=== PATIENT | female | born 1990 | race Caucasian/White ===

== ENCOUNTER 2017-02-09 12:42 | Inpatient (IN) | payer OTHER ==
[2017-02-09] MEDS ORDERED: DEXTROSE 5%-LACTATED RINGERS 1,000 ML IV SCH (13:00)
[2017-02-09 16:25] VITALS: BMI 33.9
[2017-02-09 16:32] LABS: EOSINOPHIL 0.3 % (0-4.5); MCH 27.1 pg (25.7-33.7); MCHC 32.4 g/dl (32.0-36.0); MEAN CELL VOLUME 83.7 fl (80-96); MEAN PLT VOLUME 10.7 fl (7.5-11.1); NEUTROPHILS 83.9 % (42.8-82.8); PLATELET COUNT 159 K/MM3 (134-434); RDW 14.9 % (11.6-15.6); WHITE BLOOD COUNT 15.7 K/mm3 (4.0-10.0)
[2017-02-09 16:48] LABS: INR 1.03 (0.82-1.09); PROTHROMBIN TIME (PATIENT) 11.3 SEC (9.98-11.88)
[2017-02-09 16:51] LABS: ACTIVATED PTT 27.4 SECONDS (26.9-34.4)
[2017-02-09] MEDS ORDERED: BUTORPHANOL TARTRATE 1 MG/ML VIAL IVPUSH ONE ×3 (17:00→21:15)
[2017-02-09 17:17] LABS: CALCIUM 8.6 mg/dL (8.5-10.1)
[2017-02-09 17:48] LABS: COCKROFT - GAULT 311.3295; CREATININE 0.4 mg/dL (0.55-1.02)
--- NOTE | 2017-02-09 22:09 | HP ---
Past Medical History - Admission Chief Complaint: onset of labor History of Present Illness: 26 y/o female presented to labor c/o onset of labor her antipartum care was unremarkable \she s/p normal delivery of a previous vaginal delivery which was uncomplicated' History Source: Patient Limitations to Obtaining History: No Limitations - Past Medical History Cardiovascular: No: AFIB, Aneurysm, Aortic Insufficiency, Aortic Stenosis, CAD, CHF, Deep Vein Thrombosis, HTN, Hyperlipdemia, CT, Mitral Insufficiency, Mitral Stenosis, Murmur, Pulmonary Hypertension, Other Gastrointestinal: No: Ascites, Cancer, Constipation, Crohn's Disease, Diverticulitis, Diverticulosis, Esophageal Varices, Gastritis, GERD, GI Bleed, Hemorrhoids, Hiatal Hernia, Inflamatory Bowel Disease, Irritable Bowel Disease, Pancreatitis, Peptic Ulcer Disease, Ulcerative Colitis, Other Hepatobiliary: No: Cirrhosis, Cholelithiasis, Cholecystitis, Choledocholithiasis , Hepatitis A, Hepatitis B, Hepatitis C, Other Reproductive: No: Ectopic , Endometriosis, Fibroids, PID, Polycystic Ovary Syndrome, Postmenopausal, Other ...: 2 ...Para: 1 ...Term: 1 ...: 0 ...Spon : 0 ...Induced : 0 ...Multiple Gestation: 0 ...LMP: 05/11/16 ... Weeks Gestation by Dates: 39.1 ...EDC by Dates: 02/15/17 ...EDC by Sono: 02/15/17 Heme/Onc: No: Anemia, B12 Deficiency, Bleeding Disorder, Cancer, Current Chemotherapy, Current Radiation Therapy, Hemochromatosis, Hypercoaguable State, Myeloproliferative Synd, Sickle Cell Disease, Sickle Cell Trait, Thrombocytopenia, Other Infectious Disease: No: AIDS, C-Diff, Herpes Zoster, HIV, MRSA, STD's, Tuberculosis, VREF, Other Psych: No: Addictions, Anxiety, Bipolar, Depression, Panic, Psychosis, Schizophrenia, Other Musculoskeletal: No: Bursitis, Chronic low back pain, Hemiparesis, Hemiplegia, Osteoarthritis, Paraplegia, Other Rheumatology: No: Fibromyalgia, Gout, Lupus, Rheumatoid Arthritis, Sarcoidosis, Vasculitis, Other ENT: No: Allergic Rhinitis, Sinusitis, Other Endocrine: No: [place]'s Disease, Patricio's Disease, Diabetes Insipidus, Diabetes Mellitus, Hyperparathyroidism, Hyperthyroidism, Hypothyroidism, Osteopenia, SIADH, Other Dermatology: No: Basal Cell, Cellulitis, Eczema, Melanoma, Psoriasis, Squamous Cell, Other - Past Surgical History Past Surgical History: No: None, AAA Repair, AICD, Amputation, Appendectomy, Arthrosocopy, AV Fistula/Graft, Bariatric Surgery, Breast Biopsy, Bypass, CABG, Carotid Endarterectomy, Cataract Removal, Cholecystectomy, Colectomy, Colonoscopy, Colostomy, Craniotomy, , Cystectomy, Hernia Repair, Hysterectomy, Ileal Conduit, Ileosotomy, Joint Replacement, Kidney Transplant, Laminectomy, Liver Transplant, Mastectomy, Nephrectomy, Oopherectomy, Orchiectomy, Permanent Pacemaker, Prostatectomy, Splenectomy, Stent, Thoracotomy , TURP, Tonsillectomy, Tubal Ligation, Upper Endoscopy, Valve Replacement, Vasectomy, Vein Stripping/Ligation Hx Myomectomy: No Hx Transabdominal Cerclage: No - Smoking History Smoking history: Never smoked Have you smoked in the past 12 months: No - Alcohol/Substance Use Hx Alcohol Use: No - Social History History of Recent Travel: No Home Medications - Allergies Allergies/Adverse Reactions: Allergies Allergy/AdvReac Type Severity Reaction Status Date / Time No Known Allergies Allergy Verified 02/09/17 14:27 - Home Medications Home Medications: Ambulatory Orders Pnv95/Ferrous Fumarate/FA [ Vitamin Tablet] 1 each PO DAILY 02/09/17 Family Disease History - Family Disease History Family History: Unremarkable Review of Systems - Review of Systems Constitutional: denies: No Symptoms, Chills, Diaphoresis, Fever, Lethargy, Loss of Appetite, Malaise, Night Sweats, Unintentional Wgt. Loss, Weakness, Other Eyes: denies: No Symptoms, Blind Spots, Blurred Vision, Double Vision, Eye Pain , Floaters, Photophobia, Recent Change in Vision, Other HENT: denies: No Symptoms, Difficult Swallowing, Ear Discharge, Ear Pain, Epistaxis, Gingival Bleeding, Hearing Loss, Mouth Swelling, Nasal Congestion, Ocular Prosthesis, Throat Pain, Toothache, Ringing in Ears, Other Neck: denies: No Symptoms, Decreased ROM, Lumps, Pain on Movement, Stiffness, Swollen Glands, Tenderness, Other Cardiovascular: denies: No Symptoms, Chest Pain, Edema, Palpitations, Shortness of Breath, Other Respiratory: denies: No Symptoms, Cough, Exercise Intolerance, Hemoptysis, Orthopnea, PND, Snoring, SOB, SOB on Exertion, Wheezing, Other Gastrointestinal: denies: No Symptoms, Abdominal Pain, Bloating, Constipation, Diarrhea, Dysphagia, Indigestion, Melena, Nausea, Rectal Bleeding, Vomiting, Vomiting Blood, Other Genitourinary: denies: No Symptoms, Burning, Discharge, Dysuria, Flank Pain, Frequency, Hematuria, Incontinence, Lesions, Menses, Pain, Testicular Mass, Testicular Pain, Testicular Swelling, Urgency, Vaginal Bleeding, Other Breasts: denies: No Symptoms Reported, See HPI, Breast Implants, Discharge from Nipple, Lumps, Pain, Skin Changes, Other Musculoskeletal: denies: No Symptoms, Back Pain, Crepitus, Decreased ROM, Extremity Pain, Joint Pain, Joint Swelling, Muscle Pain, Muscle Cramps, Muscle Weakness, Other Integumentary: denies: No Symptoms, Blister, Bruising, Change in Color, Eczema, Erythema, Incision, Lesions, Lump, Pallor, Pruritis, Rash, Wound, Other Endocrine: denies: No Symptoms, Excessive Sweating, Flushing, Increased Hunger, Increased Thirst, Intolerance to Cold, Intolerance to Heat, Unexplained Weight Gain, Unexplained Weight Loss, Other Psychiatric: denies: No Symptoms, Altered Sleep Pattern, Anxiety, Depression, Hallucinations, Panic, Paranoia, Suicidal, Other Physical Exam - Maternity Vital Signs: Vital Signs Temperature 98.9 F 02/09/17 21:00 Pulse Rate 105 H 02/09/17 21:00 Respiratory Rate 20 02/09/17 21:00 Blood Pressure 127/76 02/09/17 21:00 O2 Sat by Pulse Oximetry (%) Constitutional: Yes: Well Nourished Eyes: Yes: WNL, Conjunctiva Clear HENT: Yes: WNL, Atraumatic Neck: Yes: WNL, Supple Cardiovascular: Yes: WNL, Regular Rate and Rhythm Lungs: Clear to auscultation Breast(s): Yes: WNL - Abdominal Exam/OB Number of Fetuses: Single Presentation: Vertex Contractions: Yes Regularity: Regular Intensity: Moderate Monitor Mode: External Heart Rate (range): 140bpm Heart Rate Location: [facility] Category: I - Physical Exam Musculoskeletal: Yes: WNL Extremities: Yes: WNL Edema: No Integumentary: Yes: WNL Deep Tendon Reflex Grade: Normal +2 ...Motor Strength: WNL Psychiatric: Yes: WNL, Alert, Oriented - Labs Lab Results: CBC, BMP 02/09/17 15:30 02/09/17 15:30 Assessment/Plan iup at term in labor plan to assist with labor and delivery admit to labor and assist with labor and delivery
--- NOTE | 2017-02-09 22:37 | PN ---
Progress Note, Labor Vaginal Exam #1 Labor Exam Date: 02/09/17 Labor Exam Time: 09:40 Heart Rate (range): 140bpm Dilatation: 5cm Effacement (%): complete Amniotic Membrane Status: Ruptured Presentation: Vertex/Position Station: 0 Remarks: continue current care
[2017-02-09] MEDS ORDERED: WITCH HAZEL 50% (TUCKS) 40 PAD/JAR PAD TP PRN (23:17)
[2017-02-09] MEDS ORDERED: BENZOCAINE 20% 57 GM BOTTLE TP PRN (23:17)
[2017-02-09] MEDS ORDERED: BENZOCAINE 28 GM HEMORRHOIDAL OINTMENT TP PRN (23:17)
[2017-02-09] MEDS ORDERED: BISACODYL 10 MG SUPP.RECT RC PRN (23:17)
--- NOTE | 2017-02-10 00:09 | PN ---
Delivery - Delivery Vaginal Delivery: Spontaneous Type of Anesthesia: None Episiotomy/Laceration: None EBL (cc): 900 ( of living female score 99 placenta was spotaneously delivered ebl was approximatly 300cc condition is stable to recovery room) Delivery, Single - Feeding Plan Initial Plan: Exclusive throughout hospitalization
[2017-02-10] MEDS ORDERED: D5W-LR W/ 20 UNITS OXYTOCIN 1,000 ML IV SCH (01:30)
[2017-02-10] MEDS ORDERED: TUBERCULIN PPD 5 TU/0.1ML SYRINGE (IN PATIENT USE ONLY) ID ONE (01:30)
[2017-02-10] MEDS: ACETAMINOPHEN 325 MG TABLET (FP) PO PRN ×4 (01:53→21:09)
[2017-02-10] MEDS: IBUPROFEN 600 MG TABLET (FP) PO PRN ×4 (01:53→21:08)
[2017-02-10] MEDS: METHYLERGONOVINE MALEATE 0.2 MG/1 ML AMP IM PRN ×2 (01:54→04:32)
[2017-02-10] MEDS ORDERED: oxyCODONE HCL 5 MG TABLET PO ONE (05:00)
[2017-02-10 07:39] LABS: MCH 27.6 pg (25.7-33.7); MCHC 33.1 g/dl (32.0-36.0); MEAN CELL VOLUME 83.4 fl (80-96); MEAN PLT VOLUME 10.3 fl (7.5-11.1); PLATELET COUNT 153 K/MM3 (134-434); RDW 14.7 % (11.6-15.6); WHITE BLOOD COUNT 22.6 K/mm3 (4.0-10.0)
[2017-02-10 08:34] LABS: METAMYELOCYTE 1 % (0-2); PLATELET ESTIMATE ADEQUATE (NORMAL)
--- NOTE | 2017-02-10 09:17 | PN ---
Progress Note, Physician Chief Complaint: s/p she offers no complaynts - Current Medication List Current Medications: Active Medications Acetaminophen (Tylenol -) 650 mg PO Q3H PRN PRN Reason: PAIN Last Admin: 02/10/17 01:53 Dose: 650 mg Benzocaine (Americaine Ointment -) 1 applic TP PRN PRN PRN Reason: PAIN Benzocaine (Americaine 20% [place] -) 1 spray TP PRN PRN PRN Reason: PAIN Bisacodyl (Dulcolax Suppository -) 10 mg RC PRN PRN PRN Reason: CONSTIPATION Dextrose/Lactated Ringer's (Pitocin 20 Units In D5-Lr -) 1,000 mls @ 125 mls/ hr IV ASDIR SHALOM Last Admin: 02/10/17 00:00 Dose: 125 mls/hr Ibuprofen (Motrin -) 600 mg PO Q4H PRN PRN Reason: PAIN Last Admin: 02/10/17 01:53 Dose: 600 mg Methylergonovine Maleate (Methergine Injection -) 0.2 mg IM Q4H PRN PRN Reason: EXCESSIVE BLEEDING (L&D) Last Admin: 02/10/17 04:32 Dose: 0.2 mg Senna/Docusate Sodium (Pericolace -) 2 tablet PO HS PRN PRN Reason: CONSTIPATION Witch Audra/Glycerin (Tucks Pads -) 1 pad TP PRN PRN PRN Reason: PAIN - Objective Vital Signs: Vital Signs Temperature 98.1 F 02/10/17 08:29 Pulse Rate 94 H 02/10/17 08:29 Respiratory Rate 20 02/10/17 08:29 Blood Pressure 109/69 02/10/17 08:29 O2 Sat by Pulse Oximetry (%) Constitutional: Yes: Well Nourished, No Distress Eyes: Yes: WNL, Conjunctiva Clear HENT: Yes: WNL Neck: Yes: WNL, Supple Cardiovascular: Yes: WNL, Regular Rate and Rhythm Respiratory: Yes: WNL, Regular Gastrointestinal: Yes: WNL, Normal Bowel Sounds ...Rectal Exam: Yes: WNL Genitourinary: Yes: WNL Breast(s): Yes: WNL Musculoskeletal: Yes: WNL Extremities: Yes: WNL Edema: No Peripheral Pulses WNL: Yes Integumentary: Yes: WNL Wound/Incision: No: Clean/Dry, Well Approximated, Sutures Intact, [place] Intact , Steri Strips, Open to air, Dressing Dry and Intact, Dressing Removed, [place] Removed, Sutures Removed, Draining, Reddened, Bleeding, Excoriated, Unapproximated, Other Neurological: Yes: WNL, Alert, Oriented ...Motor Strength: WNL Psychiatric: Yes: WNL, Alert, Oriented Labs: CBC, BMP 02/10/17 06:10 02/09/17 15:30 INR, PTT INR 1.03 (0.82-1.09) 02/09/17 15:30 Assessment/Plan s/p of living female in the immediate post period she experienced vsginal bleefing which redolved with fundal massage and methergin im currently she denies any pain and experiences normal lochia
[2017-02-10] MEDS ORDERED: SENNOSIDES/DOCUSATE COMBO (SENNA PLUS) TABLET (UD) PO PRN (22:00)
--- NOTE | 2017-02-11 06:56 | DS ---
Physical Exam-[employer] Vital Signs: Vital Signs Temperature 98.0 F 02/10/17 21:00 Pulse Rate 84 02/10/17 21:00 Respiratory Rate 20 02/10/17 21:00 Blood Pressure 114/70 02/10/17 21:00 O2 Sat by Pulse Oximetry (%) Labs: CBC, BMP 02/10/17 06:10 02/09/17 15:30 Delivery - Delivery Vaginal Delivery: No Problems, Spontaneous Type of Anesthesia: None Episiotomy/Laceration: None EBL (cc): 900 ( of living female infant score 99 placenta was spotaneously delivered ebl was approximatly 300cc condition is stable to recovery room) Delivery, Single - Stages of Labor Date 1st Stage Initiatied: 02/09/17 Time 1st Stage Initiated: 04:00 Date 2nd Stage Initiated: 02/09/17 Time 2nd Stage Initiated: 23:20 Date of Delivery: 02/09/17 Time of Delivery: 23:46 Time Placenta Delivered: 23:52 Placenta: Yes: Spontaneous - Condition of Sales Person/Breaker Oiler Present: No Infant Gender: Female Weight: 9 lb 2 oz Position: Left, OA Total Hours ROM (Hrs/Mins): 3H 12M - 1 Minute Total Score: 9 5 Minutes Total Score: 9 - Feeding Plan Initial Plan: Exclusive throughout hospitalization Discharge Summary Reason For Visit: LABOR Procedures: Principal: Normal Hospital Course: Uncomplicated labor course, uncomplicated normal . Pt had uncomplicated post course and was discharged home on post day 2. Condition: Good - Instructions Diet, Activity, Other Instructions: Physical activity Resume your normal everyday activity as tolerated but no heavy lifting or strenuous exercise until seen by your surgeon. You may walk unlimited amounts and climb stairs. You may resume driving the car when you feel safe and comfortable behind the wheel. No sexual activity as instructed for 6 weeks. You may shower, no soaking in tubs/baths/pools for 6 weeks. Diet There are no dietary restrictions. Eat healthy, high-fiber foods. Drink 6 to 8 glasses of liquid each day. This will assist in keeping your bowels are regular. Pain management You may take Tylenol or Ibuprofen (for example, Motrin, Advil etc.) as needed for pain. Call MD for any of the following: Severe pain not relieved by medication Fever of 101 or higher Excessive bleeding or drainage on dressing Inability to urinate Referrals: Rubi Rodriguez DO [Staff Physician] - (6 weeks) Disposition: HOME - Home Medications Comprehensive Discharge Medication List: Ambulatory Orders Pnv95/Ferrous Fumarate/FA [ Vitamin Tablet] 1 each PO DAILY 02/09/17 Ibuprofen [Motrin -] 600 mg PO QID PRN #28 tablet 02/11/17
[2017-02-11 08:36] VITALS: BP 98/49; PULSE 77; TEMP 97.9
== END 2017-02-11 15:20 | disposition home or self-care (01) | DRG 774 ==
LOC: JDEL 12:42 → JLDR 15:00 → J3W 02-10 01:34
PROVIDERS: ADMIT Obstetrics & Gynecology; ATTEND Obstetrics & Gynecology
PROC: 10E0XZZ Delivery of Products of Conception, External Approach (ICD-10-PCS; principal; 2017-02-10)
DX: O72.1 Other immediate postpartum hemorrhage (principal); Z3A.39 39 weeks gestation of pregnancy; Z37.0 Single live birth
CPT/HCPCS: 36415; 59409; 80048; 85025; 85610; 85730; 86593; 86850; 86900; 86901